=== PATIENT | female | born 1950 | race Caucasian/White ===

== ENCOUNTER → 2016-12-07 | Outpatient (CLI) | payer OTHER ==
[~2016-12-07] MED LIST: ALLOPURINOL300 MG PO; ATORVASTATIN CA20 MG PO; BAYER ASPIRIN325 M1; CITALOPRAM HBR40 MG PO; FERROUS SULFATE PO; FOLIC ACID PO; HCTZ PO; KLONOPIN0.5 MG PO; LEVOXYL100 MCG PO; LIPITOR PO; LO-DOSE ASPIRIN81 M1 PO; LOPRESSOR PO; LORTAB 5/500 TA1 TA1 PO; NITROGYLCERIN SUBLINGUAL; PERCOCET7.5 PO; PLAVIX PO; PRAVACHOL PO; PRILOSEC PO; PROTONIX PO; PROZAC PO; RANITIDINE HCL150 M1 PO; SYNTHROID PO; TOPROL XL PO; TYLOX 5/500 CAP1 CAP PO; VITAMIN D2 PO; ZANTAC PO; [UNRECOGNIZED DRUG - REMARK]
--- NOTE | ~2016-12-07 | US24 ---
[facility] A Service of [facility] & [facility] RADIOLOGY TEXT RESULTS PATIENT: GONZALEZ MANZANO LOCATION: [facility] : 50 UNIT #: [id number] AGE: [address]: Reji Moy APRN SEX: F ORDER DR: [id number] [facility] [address] [place], [place] [address] [id number] O MR#: [id number] Acc #: [id number] NAME: GONZALEZ MANZANO : 1950 SEX: F STUDY DATE/TIME: 12/07/2016 10:10 UNIT: [facility] ROOM: STUDY DESCRIPTION: US Breast Unilateral Attending Physician: Reji Moy A.P.R.N. Referring Physician: Reji Moy A.P.R.N. Ordering Physician: Reji Moy A.P.R.N. Primary Care Physician: Reji Moy A.P.R.N. MEDICAL IMAGING REPORT This report is preliminary unless electronic signature is present EXAM Target ultrasound left breast 12/07/1969 Please see the diagnostic mammogram from the same date. BIRADS: 4 Dictated by... Barber Bradley M.D. THIS IS AN ELECTRONICALLY VERIFIED REPORT Barber Bradley M.D. at 12/07/2016 5:01 PM Jose Armando TD: 12/07/2016 11:22 JOB #: [id number] MEDICAL IMAGING REPORT Page 1 of 1 COPY
--- NOTE | ~2016-12-07 | MY7 ---
[facility] A Service of [facility] & [facility] RADIOLOGY TEXT RESULTS PATIENT: GONZALEZ MANZANO LOCATION: [facility] : 50 UNIT #: [id number] AGE: [address]: Reji Moy APRN SEX: F ORDER DR: [id number] [place] [id number] [facility]. [place], [place] [address] [id number] O MR#: [id number] Acc #: [id number] NAME: GONZALEZ MANZANO : 1950 SEX: F STUDY DATE/TIME: 12/07/2016 9:30 UNIT: [facility] ROOM: STUDY DESCRIPTION: MY Mammogram Dx Dig Lt Attending Physician: Reji Moy A.P.R.N. Referring Physician: Reji Moy A.P.R.N. Ordering Physician: Reji Moy A.P.R.N. Primary Care Physician: Reji Moy A.P.R.N. MEDICAL IMAGING REPORT This report is preliminary unless electronic signature is present EXAM Additional views left breast, and targeted left breast ultrasound 12/07/2016 INDICATIONS 66-year-old female who underwent a screening mammogram on a mobile unit in the [facility] system dated 11/16/2016. That screening study demonstrated equivocal architectural distortion and an asymmetry in the central left breast. Additional views were recommended. TECHNIQUE Compression CC, compression MLO and true lateral views of the left breast were obtained reviewed with an approved CAD device. Ultrasound of the subareolar left breast in the region of the previously demonstrated mammographic abnormality was also performed. COMPARISON Mammograms 11/16/2016 and 03/02/2012 FINDINGS Mammographic findings: The asymmetry in the subareolar left breast does not resolve on CC compression. It is not clearly evident on the compression ML or true lateral views, however. The breast tissue in the subareolar aspect of the left breast is heterogeneously dense similar to the prior studies. There are benign appearing calcifications. Compared to the prior studies, there appears to be some degree of new ductal ectasia, best demonstrated on the oblique and true lateral views. Focused ultrasound was thereafter performed. Ultrasound findings STS. [facility] A Service of [facility] & [facility] RADIOLOGY TEXT RESULTS PATIENT: GONZALEZ MANZANO LOCATION: [facility] #: [id number] : 50 UNIT #: [id number] AGE: [address]: Reji Moy APRN SEX: F ORDER DR: Left breast: The patient was initially scanned independently by the technologist and then rescanned in my presence. Imaging of the subareolar left breast demonstrates no suspicious shadowing mass. There is ductal ectasia, throughout the subareolar left breast. Imaging was performed throughout the clock positions of the subareolar left breast. In the 10 o'clock subareolar left breast within the dilated duct there is a small solid filling defect measuring up to about 7 x 5 mm. It demonstrates internal color-flow but no shadowing. Imaging features are suspicious for an intraductal papilloma. Ultrasound-guided core biopsy is recommended for further assessment. Findings and recommendations for ultrasound-guided core biopsy were discussed with the patient. She indicated she is on blood thinners but did not know the nature of her anticoagulants. She was counseled to discontinue blood thinners approximate 5 days prior to the scheduled procedure. She has voiced understanding and agreement. Recommendation for biopsy has also been personally called to the breast childbirth and infant care teacher prior to this dictation. The office of Chinmay Mcdaniel will be notified regarding the recommendation for biopsy. IMPRESSION 1. There is ductal ectasia on the left and there is a small probable intraductal papilloma on the left that warrants further evaluation with ultrasound-guided core biopsy. Findings and recommendations were discussed with the patient. The breast childbirth and infant care teacher has been notified. The patient should discontinue any coagulant therapy 5 days prior to scheduled biopsy. 2. The asymmetry in the subareolar left breast does not persist on the oblique or true lateral views but does persist on compression CC imaging. This may represent a summation artifact and there is no distinct ultrasound correlate. It could potentially relate to the ductal ectasia and presumed intraductal papilloma scheduled for biopsy. However, a repeat mammogram in 6 months is recommended to document imaging stability. Patient's over the age of 40 are entered into a reminder system with target due date for the next mammogram. A result letter will be sent to the patient. BIRADS: 4 Suspicious abnormality, biopsy should be considered. Dictated by... Barber Bradley M.D. THIS IS AN ELECTRONICALLY VERIFIED REPORT [facility] A Service of [facility] & [facility] RADIOLOGY TEXT RESULTS PATIENT: GONZALEZ MANZANO LOCATION: [facility] : [birth year] UNIT #: [id number] AGE: [address]: Reji Moy APRN SEX: F ORDER DR: Barber Bradley M.D. at 12/07/2016 5:01 PM RESHMAY/theron TD: 12/07/2016 11:17 JOB #: [id number] MEDICAL IMAGING REPORT Page 1 of 1 COPY
== END | disposition home or self-care (01) ==
LOC: CMAM 09:11
DX: R92.8 Other abnormal and inconclusive findings on diagnostic imaging of breast (principal); N60.42 Mammary duct ectasia of left breast
CPT/HCPCS: 76641; G0206

== ENCOUNTER → 2016-12-14 | Outpatient (CLI) | payer OTHER ==
--- NOTE | ~2016-12-14 | MY14 ---
[facility] A Service of [facility] & [facility] RADIOLOGY TEXT RESULTS PATIENT: GONZALEZ MANZANO LOCATION: [facility] : 50 UNIT #: [id number] AGE: [address]: Reji Moy APRN SEX: F ORDER DR: [id number] [facility] [address]. [place], [place] [address] [id number] O MR#: [id number] Acc #: [id number] NAME: GONZALEZ MANZANO : 1950 SEX: F STUDY DATE/TIME: 12/14/2016 14:42 UNIT: [facility] ROOM: STUDY DESCRIPTION: MY Post Bx Film Attending Physician: Reji Moy A.P.R.N. Referring Physician: Reji Moy A.P.R.N. Ordering Physician: Reji Moy A.P.R.N. Primary Care Physician: Reji Moy A.P.R.N. MEDICAL IMAGING REPORT This report is preliminary unless electronic signature is present EXAM 2 views of the left breast digital mammogram, post biopsy clip placement. DATE 12/14/2016 HISTORY Ultrasound-guided core biopsy left breast nodule today. Mammogram to document post biopsy clip placement. COMPARISON Left breast diagnostic mammogram ultrasound, 12/07/2016. Bilateral screening mammogram 11/16/2016. FINDINGS True MLO and CC views were obtained of the left breast utilizing digital technique and reviewed with an FDA-approved CAD device. Scattered fibroglandular densities present in the left breast, greatest in the subareolar region. There is increased density in the subareolar region and close to the 9-10 o'clock axis with some air bubbles, emphysematous and consistent with the biopsy. A biopsy clip is located approximately 2.7 cm deep to the nipple on the MLO view, again close to the 9-10 o'clock axis. It is thought to correspond to the mammographic abnormality seen on the spot compression CC view from 12/07/2016, located just slightly anterior to the dominant nodular density. Pathology report pending. Dictated by... Diane Zheng M.D. [facility] A Service of [facility] & [facility] RADIOLOGY TEXT RESULTS PATIENT: GONZALEZ MANZANO LOCATION: [facility] #: [id number] : [birth year] UNIT #: [id number] AGE: [address]: Reji Moy APRN SEX: F ORDER DR: THIS IS AN ELECTRONICALLY VERIFIED REPORT Diane Zheng M.D. at 12/15/2016 2:23 PM SLICK/jass TD: 12/14/2016 16:13 JOB #: [id number] MEDICAL IMAGING REPORT Page 1 of 1 COPY
--- NOTE | ~2016-12-14 | US200 ---
[facility] A Service of [facility] & [facility] RADIOLOGY TEXT RESULTS PATIENT: GONZALEZ MANZANO LOCATION: [facility] : 50 UNIT #: [id number] AGE: [address]: Reji Moy APRN SEX: F ORDER DR: [id number] [facility] [address]. [place], [place] [address] [id number] O MR#: [id number] Acc #: [id number] NAME: GONZALEZ MANZANO : 1950 SEX: F STUDY DATE/TIME: 12/14/2016 13:40 UNIT: [facility] ROOM: STUDY DESCRIPTION: US Breast Guided Bx 1st Lesion Attending Physician: Reji Moy A.P.R.N. Referring Physician: Reji Moy A.P.R.N. Ordering Physician: Reji Moy A.P.R.N. Primary Care Physician: Reji Moy A.P.R.N. MEDICAL IMAGING REPORT This report is preliminary unless electronic signature is present EXAM Ultrasound-guided left breast nodule core needle biopsy. DATE 12/14/2016 HISTORY Intraductal soft tissue nodule on previous diagnostic ultrasound for which biopsy was recommended. COMPARISON Left breast diagnostic ultrasound and mammogram 12/07/2016. FINDINGS Risks, benefits, indications of procedure were explained to the patient and informed written consent was obtained. Standard time-out procedure was performed. Left anterior breast was prepped and draped in the usual sterile fashion. 1% lidocaine was injected at the chosen site. A 13-14 gauge coaxial Achieve core-needle biopsy set was advanced to the periphery of the 10 o'clock left breast intraductal nodule, and through this 3 core-needle specimens were obtained and submitted in formalin for surgical pathologic analysis. Of note, the specimens appeared somewhat small and fragmented. However, after the first pass, the target lesion became obscured by blood products within the duct. No further passes were deemed appropriate. A clip was subsequently placed at the margin of the nodule biopsy site, and clip placement as noted within the subareolar left breast 9-10 o'clock axis, immediately along the anterior inferior margin of the dominant nodule on CC view. Needle removed. Hemostasis achieved. Patient tolerated the procedure well. No immediate complications. [facility] Service of [facility] RADIOLOGY TEXT RESULTS PATIENT: GONZALEZ MANZANO LOCATION: [facility] : 50 UNIT #: [id number] AGE: [address]: Reji Moy APRN SEX: F ORDER DR: MELISSA Successful ultrasound-guided core biopsy of left breast subareolar intraductal nodule with clip placement. No immediate complications. Dictated by... Diane Zheng M.D. THIS IS AN ELECTRONICALLY VERIFIED REPORT Diane Zheng M.D. at 12/15/2016 2:23 PM Americo TD: 12/14/2016 18:10 JOB #: [id number] MEDICAL IMAGING REPORT Page 1 of 1 COPY
== END | disposition home or self-care (01) ==
LOC: CWCC 13:28
DX: N63 Unspecified lump in breast (principal)
CPT/HCPCS: 88305; G0204

== ENCOUNTER → 2017-01-22 | Outpatient (CLI) | payer OTHER ==
--- NOTE | ~2017-01-22 | EKG ---
PATIENT: GONZALEZ MANZANO UNIT #: [id number] Ventricular Rate: 54 BPM Atrial Rate: 54 BPM P-R Interval: 140 ms QRS Duration: 94 ms Q-T Interval: 436 ms QTC Calculation(Bezet): 413 ms P Bagley: 16 degrees Calculated R Bagley: 7 degrees Calculated T Bagley: 104 degrees Diagnosis Line: Sinus bradycardia with sinus arrhythmia Diagnosis Line: Nonspecific T wave abnormality Diagnosis Line: Abnormal ECG Diagnosis Line: When compared with ECG of 24-DEC-2009 06:45, Diagnosis Line: ST no longer depressed in Anterior leads Diagnosis Line: Nonspecific T wave abnormality has replaced Diagnosis Line: inverted T waves in Anterior leads Diagnosis Line: QT has shortened Diagnosis Line: Confirmed by STEPHANIE ROQUE MD ([id number]) on 01/23/2017 Diagnosis Line: 3:30:52 PM INTERPRETING MD: MYA BARBOZA
[2017-01-22 14:49] LABS: HEMATOCRIT 39.6 % (35.0-45.0); HEMOGLOBIN 12.6 gm/dL (12.0-16.0); MEAN CELL VOLUME 85.8 FL (83-96); MEAN CORPUSCULAR HEMOGLOBIN 27.2 PG (28-34); MEAN CORPUSCULAR HGB CONC 31.7 g/dL (30-36); MEAN PLATELET VOLUME 9.2 FL (6.5-11.5); RED BLOOD COUNT 4.62 X10e (3.90-5.30); RED CELL DISTRIBUTION WIDTH 16.9 % (11.0-15.5); WHITE BLOOD COUNT 9.2 X10e3 (4.0-10.5)
[2017-01-22 15:15] LABS: BUN/CREATININE RATIO 21.11; CALCIUM SERUM 9.6 mg/dL (8.4-10.2); CREATININE SERUM 0.9 mg/dL (0.6-1.4); GLOM FILT RATE Estimated 66.7 mL/min (>60); POTASSIUM 3.9 mmol/L (3.5-5.1)
== END | disposition home or self-care (01) ==
LOC: CAMB 13:29
PROVIDERS: Specialist
DX: Z01.818 Encounter for other preprocedural examination (principal); R94.31 Abnormal electrocardiogram [ECG] [EKG]; R00.1 Bradycardia, unspecified; I49.9 Cardiac arrhythmia, unspecified
CPT/HCPCS: 36415; 80048; 85027; 93005

== ENCOUNTER → 2017-01-30 | Day surgery (SDC) | payer OTHER ==
--- NOTE | ~2017-01-30 | MY20 ---
[facility] A Service of [facility] & [facility] RADIOLOGY TEXT RESULTS PATIENT: GONZALEZ MANZANO LOCATION: [facility] : 50 UNIT #: [id number] AGE: [address]: Isai Schmidt MD SEX: F ORDER DR: [id number] [facility] [address] [place], [place] [address] [id number] O MR#: [id number] Acc #: [id number] NAME: GONZALEZ MANZANO : 1950 SEX: F STUDY DATE/TIME: 01/30/2017 8:38 UNIT: [facility] ROOM: STUDY DESCRIPTION: MY Breast Ndl Loc 1st Attending Physician: Isai Schmidt M.D. Ordering Physician: Isai Schmidt M.D. Primary Care Physician: Reji Moy A.P.R.N. MEDICAL IMAGING REPORT This report is preliminary unless electronic signature is present EXAM Left breast needle localization. Pathology is available and significant for fragment in segment of breast tissue containing focal evidence of cyst wall and portions of a papillary lesion. Findings are concordant with imaging features. Dictated by... Gopi Sharma M.D. THIS IS AN ELECTRONICALLY VERIFIED REPORT Gopi Sharma M.D. at 02/16/2017 3:28 PM EED/brennan TD: 02/15/2017 10:33 JOB #: [id number] MEDICAL IMAGING REPORT Page 1 of 1 COPY
--- NOTE | ~2017-01-30 | OR ---
Unit #: [id number] #: [id number] Patient: GONZALEZ MANZANO [id number] [facility] [address] [place], [place] [address] [id number] O MR#: [id number] NAME: GONZALEZ MANZANO ROOM: Date of Procedure: 01/30/2017 Admission Date: 01/30/2017 Surgeon: Isai Schmidt M.D. : 1950 Attending Physician: Isai Schmidt M.D. Primary Care Physician: Reji Moy A.P.R.N. OPERATIVE REPORT PREOPERATIVE DIAGNOSIS Papillary lesion, left breast, after stereotactic biopsy. POSTOPERATIVE DIAGNOSIS Papillary lesion, left breast, after stereotactic biopsy. PROCEDURE PERFORMED Needle localized excisional biopsy, left breast. ANESTHESIA Monitored anesthesia. ESTIMATED BLOOD LOSS Less than 20 mL. INDICATIONS FOR PROCEDURE A 66-year-old female on routine mammography was found to have a suspicious abnormality in the left breast. She underwent stereotactic biopsy that came back as a papillary lesion and as such could not completely rule out a possible associated malignancy. She was sent for an excisional biopsy for a complete pathological evaluation. DESCRIPTION OF PROCEDURE The patient was [facility], positively identified, transported to breast center, where ultrasound-guided localization was performed by Radiology. She was then brought to the operating room, where after being prepped and draped in usual sterile fashion, a radial incision in the skin line to include the guidewire was performed. I then grasped the breast tissue around the guidewire and dissected out circumferentially, removing all the associated abnormal tissue with a cuff of normal tissue at the tip of the wire. The lesion was sent to the lab for further evaluation. The deep tissues were closed with 3-0 Vicryl interrupted suture and then, the skin was reapproximated with 4-0 Monocryl running subcuticular closure and Dermabond skin adhesive. Sponges and needle counts were correct x3. The patient tolerated the procedure well and was transported to recovery room in stable condition. Findings and postoperative instructions were discussed with her . Dictated by... Isai Schmidt M.D. Unit #: [id number] #: [id number] Patient: GONZALEZ MANZANO RS/modl TD: 01/31/2017 08:10 JOB #: [id number] OPERATIVE REPORT Page 1 of 1 X Isai Schmidt MD PROCEDURE OPERATIVE NOTE
== END | disposition home or self-care (01) ==
LOC: CWCC 07:23 → CSUR 10:30
DX: D24.2 Benign neoplasm of left breast (principal); N60.92 Unspecified benign mammary dysplasia of left breast; E03.9 Hypothyroidism, unspecified; I10 Essential (primary) hypertension; I25.10 Atherosclerotic heart disease of native coronary artery without angina pectoris; Z95.1 Presence of aortocoronary bypass graft
CPT/HCPCS: 76098; 88307; J1885; J2250; J2405; J3010